=== PATIENT | female | born 1950 | race Caucasian/White ===

== ENCOUNTER 2016-04-30 19:54 | Emergency (ER) | payer BC ==
[~2016-04-30] VITALS: Ht 160 cm; Wt 74.5 kg
[2016-04-30 19:57] VITALS: BP 177/98; PULSE 96; RESP 16; TEMP 98.2; O2SAT 98
--- NOTE | 2016-04-30 21:22 | PD ---
HPI Chief Complaint: Eye Problems/Injury Time Seen by Provider: 21:04 Travel History International Travel<30 days: No Contact w/Intl Traveler<30days: No Traveled to known affect area: No History of Present Illness HPI The patient is a 65 year old female who presents to the [facility] emergency department with a history of proximal an hour and a half prior to arrival noticing while she was in the dark driving a flashing crescent meng shape in the right eye along the periphery. The patient reports that the symptoms are very similar to when she had a retinal detachment 2 years ago in the left eye requiring emergent laser surgery. The patient reports that the symptoms have continued. The patient denies having any headache. She denies having any nausea or vomiting. The patient reports that over the last 2 days she has noticed some increased floaters in the right eye. The patient's only other symptoms recently have been over the last couple of days having flulike symptoms with dysuria, urinary urgency, and frequency. The patient reports that she was seen at an urgent care center earlier today and diagnosed with a urinary tract infection. She reports that she has taken her first 2 doses of ciprofloxacin for this. The patient denies any recent fevers, cough, congestion , neck pain, chest pain, shortness of breath, abdominal pain, vomiting, diarrhea , or neurologic symptoms. The patient reports that she is visiting from [place]. [facility] Past Medical History Narrative Medical The patient's past medical history is significant for retinal detachment of the left eye, hypertension, depression. Past Surgical History Narrative Surgical The patient's past surgical history is significant for ectopic status post ovary and fallopian tube resection, history of appendectomy, history of abdominoplasty, history of left retinal surgery. Social History Alcohol Use: No Tobacco Use: No Substance Use: No Allergies-Medications (Allergen,Severity, Reaction): Coded Allergies: Sulfa (Verified Adverse Reaction, Mild, THRUSH, 04/30/16) Reported Meds & Prescriptions Reported Meds & Active Scripts Active Reported Cymbalta DR (Duloxetine HCl) 20 Mg Capdr 20 Mg PO DAILY Cipro (Ciprofloxacin HCl) 500 Mg Tab 500 Mg PO BID Lisinopril 20 Mg Tab 20 Mg PO DAILY Review of Systems Except as stated in HPI: all other systems reviewed are Neg General / Constitutional: No: Fever Eyes: Positive: Blind Spots, No: Blurred Vision, Photophobia, Pain, Visual changes HENT: No: Headaches Cardiovascular: No: Chest Pain or Discomfort Respiratory: No: Shortness of Breath Gastrointestinal: No: Abdominal Pain Genitourinary: No: Dysuria Musculoskeletal: No: Pain Skin: No Rash Neurologic: No: Weakness Psychiatric: No: Depression Endocrine: No: Polydipsia Hematologic/Lymphatic: No: Easy Bruising Physical Exam Narrative General: The patient is a well-developed well-nourished female in no acute distress. Head and Neck exam: Head is normocephalic atraumatic. Eyes: EOMI, pupils are equal round and reactive to light. Funduscopic examination of the patient's left eye, no acute abnormality is noted. On funduscopic examination of the right eye, the patient has an area of the retina that appears to be suspicious for detachment. This area of retinal abnormality appears to be along the lower aspect from the sixth of the 9 o'clock position Nose: Midline septum with pink mucous membranes Mouth: Dentition unremarkable. Moist mucus membranes. Posterior oropharynx is not erythematous. No tonsillar hypertrophy. Uvula midline. Airway patent. Neck: No palpable lymphadenopathy. No nuchal rigidity. No thyromegaly. Cardiovascular: Regular rate and rhythm without murmurs, gallops, or rubs. Lungs: Clear to auscultation bilaterally. No wheezes, rhonchi, or rales. Abdomen: Soft, without tenderness to palpation in all 4 quadrants of the abdomen. No guarding, rebound, or rigidity. Normal bowel sounds are audible. Extremities: No clubbing, cyanosis, or edema. 2+ pulses in all 4 extremities. Back: No spinous process tenderness to palpation. No costovertebral angle tenderness to palpation. Neurologic Exam: Grossly nonfocal. Skin: No rashes noted. The patient's skin is warm, dry, and intact. Data Data Last Documented VS Vital Signs Date Time Temp Pulse Resp B/P Pulse Ox O2 Delivery O2 Flow Rate FiO2 04/30/16 19:57 98.2 96 16 177/98 98 MDM Medical Decision Making Medical Screen Exam Complete: Yes Emergency Medical Condition: Yes Medical Record Reviewed: Yes Differential Diagnosis Retinal tear, versus retinal detachment, versus floater Narrative Course During the course of the patients emergency department visit, the patients history, examination, and differential diagnosis were reviewed with the patient. The patient's visual acuity was checked. The patient has 20/20 vision in bilateral eyes. The patient on examination has an area of abnormality of the retina suspicious for tear versus detachment. Given the patient's prior history of retinal detachment in the left eye there is a high likelihood of this being the issue that is causing the patient's symptoms. Unfortunately, today no document control specialist is on for this facility, therefore we did call [facility] to see if they had been document control specialist on- call, however they also did not. The closest facility that has an document control specialist quality control lab technician appear to be [facility]. A call has been placed out to the transfer center to discuss this with their document control specialist quality control lab technician. I was able to speak with the document control specialist. She recommended that the patient follow-up in the office tomorrow at 1 PM. The patient was provided an address and phone number for follow-up. The patient is resting comfortably and feels better, is alert and in no distress. The patients results and examination findings were discussed with the patient. The repeat examination is unremarkable and benign. The history, exam, diagnostic testing, and current condition do not suggest any significant pathology to warrant further testing, continued ED treatment, admission, or surgical evaluation at this point. The vital signs have been stable. The patient does not have uncontrollable pain, intractable vomiting, or other significant symptoms. The patient's condition is stable and appropriate for discharge. The patient will pursue further outpatient evaluation with a primary care physician or other designated or consulting physician as indicated in the discharge instructions. The patient expressed understanding and was agreeable with this plan. Physician Communication Physician Communication A call will be placed out to Dr. Ulloa, the document control specialist quality control lab technician at [facility], the closest facility with an document control specialist to discuss this patient's case with him. Repeated calls were made as the phone call was not returned quickly, and then we were notified that the document control specialist quality control lab technician would actually be Dr. Serrano. I received a call from the transfer center at approximately 11:05 PM at which time was connected to Dr. Serrano. She explained that the patient did not require transfer to the emergency department over at [facility]. She explained that she would be over in [place] tomorrow and would be able to see the patient in the office. She reports that she works closely with the retinal specialist in [place] and will be discussing this further with this specialist, Dr. Kelly. She gave me the office address and phone number for the patient to follow up tomorrow at 1 PM in the office. The office address is [address] [place] [address]. This is at [facility]. The office number is [phone]. Diagnosis Primary Impression: Vision abnormalities Additional Impression: Retinal tear of right eye Referrals: Occ Ther The office addresses [address] [place] [address]. This is at [facility]. The physician is Dr. Kelly. The office number is [phone]. Follow-up at 1 PM tomorrow. Patient Instructions: General Instructions, Retinal Hemorrhage (ED) Additional Instructions: The patient was instructed to do no sudden movements with her head. She is instructed to sleep with her head slightly elevated. She is instructed to follow-up with document control specialist tomorrow in [place]. The office address is [address] [place] [address]. This is at [facility]. The physician is Dr. Kelly. The office number is [phone]. Med/Other Pt SpecificInfo: No Change to Meds Disposition: 01 DISCHARGE HOME Condition: Stable Shi Rodriguez MD Apr 30, 2016 21:22
[2016-04-30] MEDS ORDERED: CIPR-9 PO (21:37)
[2016-04-30] MEDS ORDERED: LISI-515 PO (21:37)
[2016-04-30] MEDS ORDERED: DULO20 PO (21:37)
== END 2016-05-01 00:07 | disposition home or self-care (01) ==
LOC: NEPE 19:54
DX: H43.391 Other vitreous opacities, right eye (principal); H33.311 Horseshoe tear of retina without detachment, right eye
CPT/HCPCS: 99283